=== PATIENT | male | born 1950 | race Caucasian/White ===

== ENCOUNTER 2019-05-06 10:26 | Observation (INO) | payer MEDICARE, OTHER ==
[2019-05-06] MEDS ORDERED: Fentanyl 100 MCG/2 ML VIAL ONE (14:07)
[2019-05-06] MEDS ORDERED: Thrombin 5000 UNITS/5 ML VIAL ONE (14:13)
[2019-05-06] MEDS ORDERED: Bupivacaine HCl 0.5%/Epinephrine 1:200,000/PF 30 ml Vial ONE (14:13)
[2019-05-06] MEDS ORDERED: Dexamethasone 20 MG/5 ML VIAL ONE (15:09)
[2019-05-06] MEDS ORDERED: Ondansetron PF 4 MG/2 ML Vial ONE (15:09)
[2019-05-06] MEDS ORDERED: Succinylcholine Chloride 20 MG/ML 10 ml SYRINGE FS ONE (15:09)
[2019-05-06] MEDS ORDERED: Lidocaine 1% PF 5 ML VIAL ONE (15:09)
[2019-05-06] MEDS ORDERED: Glycopyrrolate 0.2 MG/ML 5 ML SYRINGE ONE (15:09)
[2019-05-06] MEDS ORDERED: PROPOFOL 200 MG/20 ML VIAL ONE (15:09)
[2019-05-06] MEDS ORDERED: Rocuronium Bromide 10 MG/ML (10ML VIAL) ONE (15:09)
--- NOTE | 2019-05-06 15:27 | HP ---
HISTORY OF PRESENT ILLNESS: Mr. Marrero is a very pleasant 68-year-old man, who presented to the emergency department at [facility] at the direction of Dr. 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 Asking him about history of any back issues, he has had none prior to roughly three to three and half weeks ago when he lifted a box that was heavy off the ground, bending over at the waist and lifting what sounds like mostly his back. He states he felt a little bit of discomfort, but then over the next few days, developed right-sided lower back pain and then into the anterior thigh. He then developed numbness, had an unspecified urologic procedure and then roughly 2 weeks ago to 10 days ago started to develop this proximal leg weakness. This prompted stat MRI. PAST MEDICAL HISTORY: Significant for hypertension and prostate cancer. CURRENT MEDICATIONS: None listed. ALLERGIES: NO KNOWN DRUG ALLERGIES. PHYSICAL EXAMINATION: The patient is alert and oriented x3. Gait is antalgic and altered secondary to guarding of the right lower extremity. He has excellent 5/5 strength in all movements of the left lower extremity as well as in right knee extension, knee flexion and ankle dorsiflexion and ankle plantar flexion. He does have roughly 4- out of 5 strength in right hip flexion. He is able to raise the leg up off the bed, but is unable to do so against even mild resistance. There is mild sensory disturbance in the anterior right thigh. 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 PLAN: Recommendation at this time to prevent and stave off any further motor function loss and for best recovery would be emergent lumbar diskectomy. This is discussed with the family in great detail and the family does have concerns regarding anesthesia as the urologic procedure he had two and half weeks ago resulted in moment where they had to call a Code Blue and did cardiac compressions. The procedure was still completed and the patient tolerated well and has no other significant issue postoperatively. I discussed with the extract mixer office who approves him proceeding with surgery after review of records from the [facility]. This is discussed with Dr. Kong and we will proceed with surgery today. Job ID: [id number]
[2019-05-06] MEDS ORDERED: HYDROmorphone 2 MG/ML VIAL ONE (16:14)
--- NOTE | 2019-05-06 16:14 | PRG ---
DATE OF SERVICE: 05/06/2019 Mr. Marrero is a 68-year-old gentleman referred from his primary care doctor this afternoon to the ER for progressive weakness involving the right lower extremity. He had an MRI scan performed, which shows a large extra-axial mass at the L1-L2 segment within the lumbar region. It signals much like the disk space adjacent to it. If it is not for its size, would appear very much like a very large extruded disk fragment. The possibilities include extra-axial neoplasm. There is no associated edema or erosion of the underlying bone suggestive of a more malignant neoplastic process. Nonetheless, he has had a progressive course of neurologic dysfunction. We have advocated for lumbar decompression with diskectomy and/or biopsy versus subtotal resection. I visited with the family as well as the patient, reviewed with them the imaging and planned surgical procedure and answered all of their questions. Consent was provided. Job ID: [id number]
[2019-05-06] MEDS ORDERED: tiZANidine HCl 4 MG TAB PO PRN (16:58)
[2019-05-06] MEDS ORDERED: Acetaminophen/Codeine 30-300mg Tablet PO PRN ×2 (16:58)
[2019-05-06] MEDS ORDERED: diphenhydrAMINE 50 MG/ML VIAL IVP PRN (16:58)
[2019-05-06] MEDS ORDERED: Ondansetron PF 4 MG/2 ML Vial IVP PRN (16:58)
[2019-05-06] MEDS ORDERED: Acetaminophen 325 MG TAB PO PRN (16:58)
[2019-05-06] MEDS ORDERED: Bisacodyl 10 MG SUPP PR PRN (16:58)
[2019-05-06] MEDS ORDERED: Morphine 2 MG/ML SYRINGE SLOW IVP PRN (16:58)
[2019-05-06] MEDS ORDERED: Tamsulosin HCl 0.4 MG CAP PO PRN (16:58)
[2019-05-06] MEDS ORDERED: Meperidine HCl/PF 25 MG/ML VIAL SLOW IVP PRN (17:12)
[2019-05-06] MEDS ORDERED: Promethazine HCl 25 MG/ML VIAL IM PRN (17:12)
[2019-05-06] MEDS ORDERED: Ondansetron HCl/PF 4 MG/2 ML Vial IVP PRN (17:12)
[2019-05-06] MEDS ORDERED: Promethazine HCl 25 MG/ML VIAL SLOW IVP PRN (17:12)
[2019-05-06] MEDS ORDERED: Morphine Sulfate 2 MG/ML SYRINGE SLOW IVP PRN (17:12)
[2019-05-06] MEDS ORDERED: HYDROmorphone 2 MG/ML VIAL SLOW IVP PRN (17:12)
[2019-05-06] MEDS ORDERED: PACU-Morphine 4MG/ML VIAL SLOW IVP PRN (17:12)
[2019-05-06 22:12] VITALS: BMI 30.8
[2019-05-06] MEDS: CEFAZOLIN 2 GM in Premix Bag 1 BAG IVPB SCH (22:41)
[2019-05-06] MEDS: Sodium Chloride 0.9% 1,000 ML IV SCH (22:42)
--- NOTE | 2019-05-07 00:58 | OP ---
DATE OF PROCEDURE: 05/06/2019 TABULATING CLERK: Gualberto Kyle PA-C INDICATION: Cauda equina syndrome. DIAGNOSIS: Cauda equina syndrome secondary to L1-2 epidural mass. PROCEDURES: L1-2 decompression with evacuation of mass. ANESTHESIA: General. DESCRIPTION OF PROCEDURE: The patient was brought into the operating room, placed under general anesthesia. He was flipped from the supine to prone position on the operating room table. A linear incision was planned over L1-L2. After prepping and draping and after an appropriate preoperative pause, the incision was created. The soft tissues were swept away from midline. A laminectomy was performed encompassing most of L1 superior aspect of L2. A large copious amount of milky white fluid was identified immediately, noted to egress from the lateral recess on the right side in the anterior epidural space. This was not yellow as we typically see with purulent material. There was no evidence for disk sequestration or herniation. The liquid was sent off for microbiological and pathological analysis. After decompressing the thecal sac, the wound was irrigated. A subfascial drain was placed and brought out through a separate puncture site. The wound was then closed in anatomic layers and a pressure dressing was applied. There were no known procedural complications. Job ID: [id number]
[2019-05-07] MEDS: CEFAZOLIN 2 GM in Premix Bag 1 BAG IVPB SCH (07:18)
[2019-05-07] MEDS: Sodium Chloride 0.9% 1,000 ML IV SCH (07:26)
[2019-05-07 08:44] VITALS: BP 135/86; TEMP 98.2
[2019-05-07] MEDS ORDERED: Prevnar 13-Val Conj/PF 0.5 ML SYRINGE IM ONE (09:00)
--- NOTE | 2019-05-09 09:22 | DIS ---
DATE OF ADMISSION: 05/06/2019 DATE OF DISCHARGE: 05/07/2019 Mr. Marrero is a 68-year-old man admitted to [facility] by Dr. Andrew Kong on May 06, 2019 with subsequently discharged on May 07, 2019. His hospital course was uncomplicated. ADMISSION DIAGNOSES: Lumbar stenosis and leg weakness. DISCHARGE DIAGNOSES: Lumbar stenosis and leg weakness, but also status post lumbar decompression. HOSPITAL COURSE: Mr. Marrero on the morning after surgery was doing extraordinarily well. His pains in his legs and numbness had already improved as well as a lot of weakness that he has been dealing with. He has walked many times in the hallways and has drastically improved stability and strength with his gait. Incision is very well approximated and dry. YOSI drain tapered. We will remove that this morning. Medications were sent to his pharmacy at [facility] in [facility] with stat pain medications, muscle relaxer as well as 10 days of antibiotics that he will need to start tomorrow. We will plan to see him in 2 weeks. Job ID: [id number]
== END 2019-05-07 11:10 | disposition home or self-care (01) ==
LOC: ERS 10:26 → SURG B 16:57
PROVIDERS: ADMIT Neurological Surgery; ATTEND Neurological Surgery
PROC: 0QB00ZZ Excision of Lumbar Vertebra, Open Approach (ICD-10-PCS; principal; 2019-05-06)
DX: M48.061 Spinal stenosis, lumbar region without neurogenic claudication (principal); M54.16 Radiculopathy, lumbar region; G83.4 Cauda equina syndrome; G95.9 Disease of spinal cord, unspecified; I10 Essential (primary) hypertension
CPT/HCPCS: 51798; 87070; 87205; 88305; 90471; 90670; 96361; 96365; 96376; 99291; G0009; G0378; J0670; J0690; J1100; J1170; J2001; J2405; J2704; J3010

== ENCOUNTER 2019-11-03 13:23 | Day surgery (SDC) | payer OTHER ==
[2019-11-02 10:21] VITALS: BMI 31.5
[~2019-11-03 13:23] MED LIST: Glycopyrrolate 0.2 MG/ML 5 ML SYRINGE ONE; Lidocaine 1% PF 5 ML VIAL ONE; Ondansetron PF 4 MG/2 ML Vial ONE; PROPOFOL 200 MG/20 ML VIAL ONE
[2019-11-03 14:17] LABS: Hemoglobin 14.6 g/dL (14.0-18.0)
[2019-11-03] MEDS ORDERED: Lidocaine 1% w/Epinephrine 1:100K 20 ML VIAL ONE (14:30)
[2019-11-03] MEDS ORDERED: Bacitracin Zinc Ointment 30 gm TUBE ONE (14:35)
[2019-11-03] MEDS ORDERED: Fentanyl 100 MCG/2 ML VIAL ONE ×2 (14:45→15:19)
[2019-11-03 14:47] LABS: Anion Gap 11 mmol/L (10-20); BUN (Urea Nitrogen) 17 mg/dL (8.4-25.7); Calc. Creatinine Clearance 77 mL/min (70-130); Calcium 9.2 mg/dL (7.8-10.44); Carbon Dioxide 29 mmol/L (23-31); Chloride 104 mmol/L (98-107); Estimated GFR-MDRD 57; Glucose 93 mg/dL (83-110); Potassium 4.5 mmol/L (3.5-5.1); Sodium 139 mmol/L (136-145)
--- NOTE | 2019-11-07 13:37 | OP ---
DATE OF PROCEDURE: 11/03/2019 PREOPERATIVE DIAGNOSIS: Right preauricular malignancy. POSTOPERATIVE DIAGNOSES/PROCEDURE: 1. 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 2. Split-thickness skin graft reconstruction. 3. [place] of 3 sq cm skin graft from right shoulder. PROCEDURE IN DETAIL: After consent was obtained, the patient was identified and brought to the operating room and placed on the operating table in supine position. Laryngeal mask anesthesia was obtained. The patient was positioned for surgery. The area of intended surgery was infiltrated with 1% lidocaine and and involved part of the rim of the right ear and of the helix. We prepped and draped the right ear as well as the shoulder. We then delineated 0.5 cm around the lesion, marking and excised that portion of skin down to the level of cartilage and inferior margin, histologic evaluation. Pathology ultimately revealed squamous cell carcinoma with clear margin. We then decided to remove the underlying cartilage while leaving a structure to have a good cosmetic result and discarded the cartilage. At this point, then we measured the defect and replicated the defect on the shoulder as far as the shape. We were then able to infiltrate the right shoulder and with blade, harvested a split-thickness graft. The harvested skin was placed over the defect the graft was tacked to the margin of the defect with 6-0 . We then placed a Xeroform gauze, which was trimmed to size over the defect followed by cotton ball that had been dipped in mineral oil. Stay sutures were then created with 2-0 silk ties and a bolster. Bacitracin ointment over the bolster. Sterile dressing was placed over the . The patient was awakened, taken to recovery room. The patient tolerated the procedure well. Job ID: [id number]
== END 2019-11-03 17:40 | disposition home or self-care (01) ==
LOC: SDC 13:23
PROVIDERS: ATTEND Specialist
PROC: 0HR2X74 Replacement of Right Ear Skin with Autologous Tissue Substitute, Partial Thickness, External Approach (ICD-10-PCS; principal; 2019-11-03)
DX: C44.222 Squamous cell carcinoma of skin of right ear and external auricular canal (principal); K21.9 Gastro-esophageal reflux disease without esophagitis; G47.30 Sleep apnea, unspecified; J34.2 Deviated nasal septum; Z98.890 Other specified postprocedural states; Z79.899 Other long term (current) drug therapy
CPT/HCPCS: 80048; 85014; 85018; 88305; 88331; 88332; 93005; 93010; J2001; J2405; J2704; J3010

== ENCOUNTER 2021-12-11 22:27 | Emergency (ER) | payer MEDICARE | END 2021-12-11 23:38 | disposition home or self-care (01) | LOC: ERS 22:27 | DX: T18.128A Food in esophagus causing other injury, initial encounter (principal) | CPT/HCPCS: 99283 ==

== ENCOUNTER 2022-05-07 07:43 | Outpatient (CLI) | payer MEDICARE ==
[2022-05-07] MEDS ORDERED: Iopamidol-370 76% 500 ML 1 ML ONE (08:56)
== END 2022-05-07 07:44 | disposition home or self-care (01) ==
LOC: BICCT 07:43
PROVIDERS: ATTEND Urology
DX: N28.1 Cyst of kidney, acquired (principal); R91.1 Solitary pulmonary nodule; K44.9 Diaphragmatic hernia without obstruction or gangrene; K55.1 Chronic vascular disorders of intestine; I25.10 Atherosclerotic heart disease of native coronary artery without angina pectoris; M47.819 Spondylosis without myelopathy or radiculopathy, site unspecified
CPT/HCPCS: 74178; 82565; Q9967